=== PATIENT | female | born 1995 | race Caucasian/White ===

== ENCOUNTER 2020-06-10 17:42 | Outpatient (CLI) | payer OTHER, SELFPAY ==
[2020-06-14 14:29] LABS: HSV 1 IgM Screen Negative (Negative); HSV 2 IgM Screen Negative (Negative)
== END 2020-06-10 17:43 | disposition home or self-care (01) ==
LOC: ANHLAB 17:50
PROVIDERS: PCP Family Medicine; Visit Provider Nurse Practitioner Family
DX: Z20.828 Contact with and (suspected) exposure to other viral communicable diseases (principal)
CPT/HCPCS: 36415; 86695; 86696

== ENCOUNTER 2020-07-11 11:18 | Outpatient (CLI) | payer OTHER, SELFPAY ==
[2020-07-11 11:35] LABS: Hematocrit 41.9 % (37.0-47.0); Hemoglobin 14.1 g/dL (12.0-15.0); Mean Corpuscular HGB Conc 33.7 g/dl (32-36); Mean Corpuscular Hemoglobin 30.4 pg (26-34); Mean Corpuscular Volume 90.3 fl (80-100); Mean Platelet Volume 8.7 fl (7.4-10.4); Platelet Count Result 320 k/mm3 (150-375); Red Blood Count 4.64 M/mm3 (4.2-5.4); Red Cell Distribution Width 13.2 % (11.5-14.5)
[2020-07-11 11:40] LABS: Add Urine Microscopic? YES; Appearance Urine Clear (Clear); Bacteria Urine Trace /hpf; Bilirubin Urine Negative (Negative); Blood Urine Negative (Negative); Color Urine Yellow (Yellow); Glucose Urine UA Negative (Negative); Ketones Urine Negative (Negative); Leukocyte Esterase Ur Negative LEU/UL (NEGATIVE); Mucus Urine Heavy /lpf; Nitrate Urine Negative (Negative); Protein Urine 1+ mg/dL (Negative); RBC Urine 0-2 /hpf (0-2); Specific Grav Ur 1.026 (1.001-1.035); Squamous Epithelial Cell Urine Few /hpf (Few); Urobilinogen Urine Negative mg/dL (<2.0)
[2020-07-11 11:57] LABS: Anion Gap 8 mmol/L (8-16); Blood Urea Nitrogen 14 mg/dL (7-17); Calcium 9.3 mg/dL (8.4-10.2); Carbon Dioxide 24 mmol/L (22-30); Chloride 106 mmol/L (98-107); Cholesterol 262 mg/dL (0-200); Estimated Glomerular Filt Rate > 60; Glucose 96 mg/dL (65-105); HDL Direct 56 mg/dL; Sodium 138 mmol/L (137-145); Triglycerides 111 mg/dL (<150)
[2020-07-11 12:07] LABS: LDL Cholesterol Direct 179 mg/dL
[2020-07-11 12:35] LABS: Vitamin D 25 Hydroxy 53.1 ng/mL
== END 2020-07-11 11:19 | disposition home or self-care (01) ==
LOC: ANHLAB 11:20
PROVIDERS: PCP Family Medicine; Visit Provider Nurse Practitioner Family
DX: Z13.220 Encounter for screening for lipoid disorders (principal); Z13.1 Encounter for screening for diabetes mellitus; E03.9 Hypothyroidism, unspecified; Z00.00 Encounter for general adult medical examination without abnormal findings; Z00.01 Encounter for general adult medical examination with abnormal findings; Z13.89 Encounter for screening for other disorder
CPT/HCPCS: 36415; 80048; 80061; 81001; 82306; 84443; 85027

== ENCOUNTER 2020-11-28 07:37 | Outpatient (CLI) | payer OTHER, SELFPAY ==
[2020-11-28 08:30] LABS: Cholesterol 209 mg/dL (0-200); HDL Direct 76 mg/dL; Triglycerides 64 mg/dL (<150)
[2020-11-28 08:41] LABS: LDL Cholesterol Direct 103 mg/dL
== END 2020-11-28 07:38 | disposition home or self-care (01) ==
PROVIDERS: PCP Family Medicine; Visit Provider Nurse Practitioner Family
DX: E78.5 Hyperlipidemia, unspecified (principal)
CPT/HCPCS: 36415; 80061